=== PATIENT | male | born 1990 | race Caucasian/White ===

== ENCOUNTER 2023-06-23 09:31 | Emergency (ER) | payer SELFPAY ==
[2023-06-23 09:32] VITALS: BP 130/68; PULSE 75; RESP 16; TEMP 35.2; O2SAT 97; BMI 26.3
--- NOTE | 2023-06-23 10:14 | EX.ED.UPPERE ---
HPI History of Present Illness HPI Narrative: Patient presents with cat bite to his right thumb that occurred yesterday. Patient states he was helping his girlfriend parents cat out of a hole when the cat bit him on his right thumb. Patient states the pain and swelling has gotten worse today. Patient describes the pain as throbbing. Patient states it is worse with palpation. Patient states nothing seems to help with it. Patient denies any paresthesias or weakness. Patient denies any fevers or chills. Chief Complaint: Bite Informant: patient Occured/Mechanism Comment: Cat bite Onset/Context/Timing Onset: Yesterday Context: Sudden Onset Timing: Continuous Quality of Pain: Throbbing Location: Right thumb Worsened by: Palpation Relieved by: Nothing Associated Symptoms Associated Symptoms: Negative for Parasthesia, Weakness or Loss of Funtion Narrative Tetanus Immunization: <5 years PFSH PFSH Medical History no medical history no medical history Home Medications amoxicillin 875 mg-potassium clavulanate 125 mg tablet 875 mg (0.875 x 875-125 mg) PO Q12H #20 TABLETS 06/23/23 [Rx Last Taken Unknown] Allergy/AdvReac Type Severity Reaction Status Date / Time No Known Allergies Allergy Verified 06/23/23 09:33 Family History no significant family his Surgical History no surgical history no surgical history Social History Smoking Status: Current every day smoker tobacco type: cigarettes ROS ROS ED Constitutional Constitutional ED: Denies chills or fever(s) Eyes Eyes: Denies blurry vision or change in vision ENT ENT ED: Denies rhinorrhea or sore throat Cardiovascular Cardiovascular: Denies chest pain or palpitations Respiratory/Chest Respiratory/Chest: Denies cough or dyspnea Gastrointestinal Gastrointestinal: Denies nausea or vomiting Genitourinary Genitourinary ED: Denies dysuria or hematuria Musculoskeletal Musculoskeletal: Denies back pain or neck pain Integumentary Denies abscess or rash Neurologic Neurologic: Denies headache(s) or weakness Allergic/Immunologic Allergic/Immunologic ED: Denies mouth swelling or urticaria EXAM Physical Exam Const Vital Signs: 06/23/23 09:32 Temperature 95.4 F L Temperature Source Temporal Pulse Rate 75 Respiratory Rate 16 Blood Pressure 130/68 H Blood Pressure Mean 88 Pulse Ox 97 Oxygen Delivery Method Room Air Positive well nourished and well developed General Appearance ED: well developed and NAD HEENT Reports moist mucous membranes Neck full ROM and supple Neuro oriented x3, CN's II-XII intact bilaterally, moves all extremities, no focal motor deficits and no sensory deficits noted Sensorium / Orientation: alert Motor Exam: strength 5/5 throughout Psych mental status grossly normal Skin Skin Narrative: There are some puncture wounds and abrasions over the dorsal aspect of the proximal phalanx of the right thumb. There is some mild edema. There is no warmth noted. There is good range of motion of the IP and MP joints of the right thumb. Sensation was intact to light touch in all digits. Capillary refill was less than 2 seconds in all digits. Radial pulses are equal bilaterally. There is no bony crepitance or step-off noted. There is no obvious deformity noted. MDM MDM MDM Narrative Medical decision making narrative: Patient was advised that this may be starting to become infected. Cat bites do get infected easily. Patient was given a dose of Augmentin here. Patient is given a prescription for Augmentin. Patient was instructed to follow-up with his primary care physician in 3 to 5 days. Patient instructed to return if worse in any way. Patient understood and was agreeable with the plan. All questions were answered. Discharge Plan Triage Chief Complaint: Bite ED Provider: Jordan Larson Dx/Rx/DC Orders Clinical Impression: Cat bite of right thumb with infection Instructions: ED Cat Bite Prescriptions: New amoxicillin-pot clavulanate [amoxicillin-pot clavulanate] 875-125 mg tablet 875 mg PO Q12H Qty: 20 0RF Stand Alone Forms: ED Work / School Excuse Primary Care Provider: Care Physician,No Primary Referrals: Doctor,Your [Non-Staff] - 3-5 Days Disposition Disposition: Home, Self Care Discharge Date/Time: 06/23/23 10:53
[2023-06-23] MEDS: Amox/Clavulanate 875 MG Tablet PO (10:38)
[2023-06-23 10:52] VITALS: BP 135/79; PULSE 68; RESP 16; TEMP 36.7; O2SAT 99
== END 2023-06-23 10:53 | disposition home or self-care (01) ==
LOC: ED 10:28
PROVIDERS: Emergency Provider Emergency Medicine; Visit Provider Emergency Medicine
DX: S60.371A Other superficial bite of right thumb, initial encounter (principal); W55.01XA Bitten by cat, initial encounter; L08.89 Other specified local infections of the skin and subcutaneous tissue; F17.210 Nicotine dependence, cigarettes, uncomplicated
CPT/HCPCS: 99282